=== PATIENT | female | born 1955 | race Hispanic/Latino ===

== ENCOUNTER 2024-08-29 05:51 | Observation (INO) | payer OTHER, MEDICAID ==
[2024-08-27 12:58] LABS: IMMATURE GRANULOCYTE ABSOLUTE 0.03 K/uL (0-1); NUCLEATED RED BLOOD CELLS 0.0 % (0.0-0.19); PLATELET COUNT (AUTO) 202 K/uL (130-400); RED BLOOD CELL COUNT(AUTO) 4.23 MIL/uL (4.00-5.50); RED CELL DISTRIBUTION WIDTH 13.6 % (11.0-15.5); WHITE BLOOD COUNT (AUTO) 7.2 K/uL (4.8-10.8)
[2024-08-27 12:59] VITALS: PULSE 63; RESP 18; TEMP 97.7
--- NOTE | 2024-08-27 13:30 | NUR ---
RE: IS INITIAL IS INITIAL INSTRUCTIONS DONE BY RT KRIS DURING PREOP.
--- NOTE | 2024-08-28 06:41 | EKG ---
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
--- NOTE | 2024-08-28 10:30 | NUR ---
RE: EKG REPORTED EKG RESULTS TO DR MACIEL, NO NEW ORDERS RECEIVED.
[2024-08-29] VITALS (31 sets, daily range): BP systolic 111–180; BP diastolic 44–74; PULSE 59–88; RESP 16–20; TEMP 97.5–98.5; O2SAT 96–99
[~2024-08-29] VITALS: Ht 157.5 cm; Wt 82.6 kg
[~2024-08-29 05:51] MED LIST: INSU100V37 SQ; LOSA25TA41 PO; METF-445 PO; ROSU5TAB51 PO; SEMA2PEN SQ
[2024-08-29] MEDS ORDERED: MIDAZOLAM HCL 1 MG/ML 2ML VIAL ONE (06:31)
[2024-08-29] MEDS ORDERED: TRANEXAMIC ACID 1000MG/10ML ONE (06:34)
[2024-08-29] MEDS: 0.9%NACL 1000ML 1,000 ML IV ONE (06:38)
--- NOTE | 2024-08-29 07:25 | DS ---
Discharge Summary Hospital Course Summary: The patient was admitted to the hospital postoperatively on 08/29/2024 after undergoing right total knee arthroplasty. They did well with routine postoperative pain control. They worked well with physical therapy. They developed some acute blood loss anemia but remained asymptomatic. The hospital course was otherwise uncomplicated. They were subsequently able to be discharged on postoperative day [] once discharge arrangements were made with [place]. 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 Dressing may be removed 09/03/2024 and left open to air. Showers ok allowing soap and water to run over the wound. Pat dry. Do not submerge wound in tub/pool. Do not apply ointments. Do not apply Betadine. Do not apply peroxide. Ice packs to decrease pain/swelling. Prescriptions have been sent to the pharmacy: *Eden 5/325mg 1-2 tab every 6 hours as needed for severe pain. (please call for refills) Cyclobenzaprine 5mg 1 tab every 8 hours as needed for muscle spasm pain. Gabapentin 100mg 1 tab every 8 hours (may discontinue if drowsy). Colace 100mg 1 tab orally twice a day as needed for constipation. Aspirin 325mg twice a day for 30 days to prevent blood clots. Follow up appointment scheduled on 09/21/2024 at 8:45 AM at [facility]. Home Medications: Active Scripts Hydrocodone/Acetaminophen (Hydrocodon-Acetaminophen 5-325) 5 Mg-325 Mg Tablet, 1-2 TAB PO Q6HPRN PRN for SEVERE PAIN (7-10), #56 TAB 0 Refills Prov:BALTAZAR TORRES MD 08/31/24 Reported Medications Semaglutide (Ozempic) 2 Mg/0.75 Ml (8 Mg/3 Ml) Pen.injctr, 2 MG SQ QWEEK 08/27/24 Insulin Degludec (Tresiba) 100 Unit/Ml Vial, 35 UNIT SQ NOON, VIAL 08/27/24 Rosuvastatin Calcium (Rosuvastatin Calcium) 5 Mg Tablet, 5 MG PO HS, TAB 08/27/24 Losartan Potassium (Losartan Potassium) 25 Mg Tablet, 25 MG PO BID, TAB 08/27/24 Metformin HCl (Metformin HCl) 850 Mg Tablet, 850 MG PO TIDMEALS, TAB 08/27/24 BALTAZAR TORRES MD Aug 29, 2024 07:25
[2024-08-29] MEDS ORDERED: PoTASSium chl 10% ELIXIR 20MEQ 20 MEQ/15 ML UDCUP PO PRN (07:30)
[2024-08-29] MEDS ORDERED: CALCIUM CARB 500MG PO PRN (07:30)
[2024-08-29] MEDS ORDERED: FERROUS FUMARATE 324 MG TABLET PO PRN (07:30)
[2024-08-29] MEDS ORDERED: HYDROcodone/APAP 5/325 1 TAB TABLET PO PRN (07:30)
[2024-08-29] MEDS: TRANEXAMIC ACID 1000MG/10ML IV ONE (08:49)
[2024-08-29] MEDS ORDERED: GLYCOPYRROLATE 0.2 MG/ML 5 ML VIAL ONE (08:54)
[2024-08-29] MEDS ORDERED: NEOSTIGMINE METHYLSULFATE 1MG/ML IV ONE (08:54)
[2024-08-29] MEDS: (Semaglutide (Ozempic) 2 MG) SQ SCH (09:00)
--- NOTE | 2024-08-29 10:30 | NUR ---
RECEIVED PATIENT FROM RECOVERY ROOM VIA BED,AWAKE ALERT AND ORIENTED, ORIENTED TO ROOM AND USE OF CALL AUGUSTE.CHARANJIT WRAP TO RT LOWER EXTREMITY INTACT PATIENT ABLE TO WIGGLE TOES ,PINK IN COLOR STRONG PEDAL PULSES NOTED. SEQUENTIAL COMPRESSION DEVICES APPLIED TO BILATERAL LOWER EXTREMITIES ,ICE PACKS APPLIED TO RT KNEE.RATIONAL FOR USE EXPLAINED TO PATIENT.PAIN SCALE ON PATIENT BOARD REVIEWED WITH PATIENT ,PATIENT STATES SHE CURRENTLY DOES NOT REQUIRE PAIN MED.INFORMED PATIENT ON THE USE OF INCENTIVE SPIROMETRY STATES I HAVE BEEN EDUCATED PREVIOUSLY ON THE USE , MY DAUGHTER HAS THE ONE I WAS GIVEN AND WILL BE HERE SHORTLY WITH IT. CALL AUGUSTE WITHIN REACH VITAL SIGNS STABLE .
--- NOTE | 2024-08-29 10:38 | HMCIMG ---
EXAM: CR right Knee, 2 View. CLINICAL HISTORY: S/P RT TKA SURGERY COMPARISON: None provided. FINDINGS: Cemented right total knee arthroplasty is in near anatomic alignment with no periprosthetic fracture appreciated. Appropriate postsurgical changes are noted within the soft tissues and knee joint. IMPRESSION: 1. Right total knee arthroplasty in near anatomic alignment without periprosthetic fracture. /Clever
--- NOTE | 2024-08-29 10:56 | OP ---
Operative Note: DATE OF PROCEDURE: 08/29/24 PREOPERATIVE DIAGNOSIS: Right knee osteoarthritis. POSTOPERATIVE DIAGNOSIS: Right knee osteoarthritis. PROCEDURE PERFORMED: Right knee total knee arthroplasty. SURGEON: Harmony Barrios MD DIE TRIPPER: Shanique Hoyt and Yamilet Freire. ANESTHESIA: General with adductor canal block. ANESTHESIA: HEAVY MOBILE EQUIPMENT REPAIRER Yaw Walker. ESTIMATED BLOOD LOSS: 50cc. COMPLICATIONS: None. DRAINS: None. SPECIMENS REMOVED: resected bone. Not sent to pathology. IMPLANTS: [employer]hew Journey II BCS size 4 Oxinium femur, size 2 tibial base plate, 29 x 7.5 mm patella, 10 mm polyethylene STATEMENT OF MEDICAL NECESSITY: The patient is a 69-year-old female who suffers from right knee osteoarthritis failing conservative management. After discussion of the risks, benefits, and alternatives with the patient, they voluntarily agreed to undergo the aforementioned procedure. DESCRIPTION OF PROCEDURE: Patient was properly identified in the preoperative holding area. Surgical site marking was verified and surgery consent reviewed. The patient was then taken to the operating room and placed in supine position on the OR table. After induction of general anesthesia, preoperative antibiotics were given, all bony prominences were well-padded, and a well padded tourniquet was applied but not inflated at this time. The right lower extremity was then prepped and draped in usual sterile fashion. Surgical time out was done verifying correct surgery, side, site, and location to be performed. We then began the procedure by exsanguinating the limb using an Esmarch and inflating the tourniquet to 350 mmHg. At this point, we made an anterior midline incision using a 10 blade, coming down sharply the level of the fascia. Skin flaps were elevated medially and laterally. We then obtained a clean 10 blade and performed a standard medial parapatellar arthrotomy. We excised the infrapatellar fat pad. We performed our soft tissue releases off of the tibia. We transected the ACL and removed the anterior portion of the medial & lateral meniscus. We then brought the knee into hyperflexion with the patella everted. We used our entry reamer to enter the femoral canal. We then placed our intramedullary cutting guide for our distal femoral cutting block. We then performed our distal femoral osteotomy ensuring appropriate rotation and removed the bony wafer. We then removed these pins and block and then used jig 2 to size the distal femur with the after mentioned size found. We then placed our 5-in-1 cutting block in 4 degrees of external rotation and took our 5 cuts ensuring to protect the patellar tendon and the collateral ligaments. We then removed the cutting block and our bony fragments using a curved osteotome. We then placed our PCL retractor subluxating the tibia anteriorly. Using an extra medullary tibial cutting guide, we hung the block for our proximal tibial cut taking 2 mm off the more diseased portion. Prior to pinning this block in place, we ensured appropriate varus/valgus alignment and posterior slope similar to the qawalangin slope of the patient's knee. We then performed our proximal tibial osteotomy and removed the bony wafer using Bovie electrocautery to release any remaining soft tissue attachments. We then used our tibial sizing paddle and checked once more for varus & valgus alignment and found this to be appropriate. At this point, we pinned our tibial paddle in place. We then removed the PCL retractor and subluxated the tibia posteriorly while we placed our femoral trial component. We then finished preparing the notch with the reamer and box chisel. The notch portion of the trial femoral component was then placed. A posterior stabilized polyethylene, size 9 trial was placed. This was immediately increased to a size 10 polyethylene secondary to laxity with varus and valgus stressing. The knee was then taken through range of motion and found to have stable full range of motion. We then placed a bump under the ankle and everted the patella to perform our freehand cut of the undersurface the patella. We then sized our patella and reamed to the lug holes for this. We placed our trial patellar component and begin to take the knee through range of motion. The patella had appropriate tracking. At this point we began removing our trial components and punched the tibial keel prior to removing our tibial trial component. Final components were opened and cement was mixed on the back table while we injected local cocktail in the posterior capsule. We then thoroughly irrigated out the bone and dried the bony surfaces. We cemented our tibial component in place ensuring to remove excess cement and placed our trial polyethylene. We then cemented our femoral component in place once again taking time to ensure excess cement was removed leg was brought into full extension to help squeeze the excess cement from around the femoral component. We then brought the knee back in a flexion to remove this portion of the cement at this point we placed the ankle in a bump thoroughly irrigated off the patellar component and cemented our patellar component in standard fashion again removing excess cement. While we waited for the cement to cure, we thoroughly irrigated out the wound with normal saline. Once our cement had cured, we took the knee through a range of motion and found full and stable range of motion. We then elected to use the size 10 polyethylene and removed our trial polyethylene. We impacted our final polyethylene component in place in standard fashion and took the knee through a range of motion check once more. This was satisfactory so we began to repair the arthrotomy using #1 Vicryl in interrupted [id number]-lp-[id number] fashion. Subcutaneous tissue was repaired using 2-0 Vicryl. Running subcuticular 3-0 Monocryl stitch with Dermabond placed over this for the skin. We then applied a foam barrier dressing and a pressure dressing consisting of 4 x 4's fluffs and an Markie wrap. The tourniquet was then deflated. Patient was awakened from anesthesia, and they were taken to the recovery room in stable condition. HARMONY BARRIOS MD Aug 29, 2024 10:56
[2024-08-29] MEDS: 0.9%NACL 1000ML 1,000 ML IV SCH (12:18)
--- NOTE | 2024-08-29 14:46 | NUR ---
DC PLAN VISITED WITH PATIENT. PATIENT LIVES WITH AUNT. PATIENT HAS PROVIDER 2 HRS. WALKER AND WHEEL CHAIR AT HOME. ASKED PATIENT ABOUT TRIGGER FOR [facility]. SAID DR BRADY MENTIONED A SNF BUT COULD NOT REMEMBER. SAID THAT HE PROBABLY MEANT [facility]. BUT THAT DR. TORRES PREFERS [facility]. BUT THAT DR. BRADY HAS PRIVILEGES TO [facility]. JHONNY SIGNED FOR [facility]. LET REP KNOW. PENDING PT NOT TO SEND PACKET. Addendum: 08/29/24 at 1451 by LANCE KIDD RN CM Amended: Links added.
--- NOTE | 2024-08-29 16:00 | NUR ---
Ortho Coordinator: Teaching regarding DVT prevention and pneumonia, pain expectations and pain management. Patient in bed, daughter at bedside. B SCD sleeves in place and functioning. Incentive spirometer on bedside table. Patient return demonstrated proper use of incentive spirometer and verbalized frequency of use. Patient return demonstrated proper foot flexion/extension exercises, rationale provided. Pain management strategy reviewed. Questions answered. Expectations set for patient to shower tomorrow, rationale provided. Patient intends to discharge to rehab. No additional questions or concerns at this time.
[2024-08-29] MEDS: HYDROcodone/APAP 5/325 1 TAB TABLET PO PRN (17:13)
[2024-08-30] VITALS (7 sets, daily range): BP systolic 156–171; BP diastolic 46–63; PULSE 58–73; RESP 18–20; TEMP 97.3–98.4; O2SAT 96–98
[2024-08-30 05:36] LABS: NUCLEATED RED BLOOD CELLS 0.0 % (0.0-0.19); PLATELET COUNT (AUTO) 152.0 K/uL (130-400); RED BLOOD CELL COUNT(AUTO) 3.56 MIL/uL (4.00-5.50); RED CELL DISTRIBUTION WIDTH 13.5 % (11.0-15.5); WHITE BLOOD COUNT (AUTO) 7.5 K/uL (4.8-10.8)
[2024-08-30 06:00] LABS: CREATININE 1.0 mg/dL (0.5-1.0); GLOMERULAR FILTR. RATE CALC 60.0 mL/min (>90); GLUCOSE,RANDOM 120.0 mg/dL (70-105); SODIUM SERUM 140.0 mmol/L (136-145); UREA NITROGEN, BLOOD 12.0 mg/dL (7-18)
--- NOTE | 2024-08-30 08:10 | PN ---
Ortho postop day one. This morning patient is awake alert and oriented. She is reporting well managed pain. Daughter is at the bedside and states she has been doing fairly well. Vital signs have remained stable. Voiding on his own without difficulty. Passing Cindy;pending BM. Laboratory results reviewed noted to have a drop in hemoglobin and hematocrit as expected after TKA. Patient we will continue to be monitored and we will address per protocol as necessary. The Markie bandage his already been removed. The dressing is intact anteriorly. Bilateral SCD sleeves are currently on to lower extremities. The gastrocnemius a soft and nontender. Negative Homans. Operative findings discussed with the patient. Ambulated yesterday with physical therapy about 20 ft and is pending therapy this morning. Anticipated discharge goal is SNF at [facility]. Assessment: Status post right total knee arthroplasty. Acute postoperative blood loss anemia. Plan: Continue with Dr. Barrios's TKA protocol and discharge planning. Acute postoperative blood loss anemia addressed with the protocol as necessary. Vitals/Labs Vital Signs Date Time Temp Pulse Resp B/P (MAP) Pulse Ox O2 Delivery O2 Flow Rate FiO2 08/30/24 07:15 73 18 N/Cannula Low lpm 2.0 28 08/30/24 04:00 98.4 161/59 96 Laboratory Tests 08/30/24 05:21 Medications Current Medications Cefazolin Sodium 2 gm STK-MED ONCE .ROUTE; Start 08/29/24 at 06:19; Stop 08/29/24 at 06:19; Status DC Sodium Chloride 1,000 ml @ As Directed STK-MED ONCE IV Last administered on 08/29/24at 06:38; Start 08/29/24 at 06:19; Stop 08/29/24 at 06:19; Status DC Propofol 200 mg STK-MED ONCE IV; Start 08/29/24 at 06:31; Stop 08/29/24 at 06:31; Status DC Midazolam HCl 2 mg STK-MED ONCE .ROUTE; Start 08/29/24 at 06:31; Stop 08/29/24 at 06:31; Status DC Rocuronium [place] 50 mg STK-MED ONCE .ROUTE; Start 08/29/24 at 06:31; Stop 08/29/24 at 06:31; Status DC Fentanyl Citrate 100 mcg STK-MED ONCE .ROUTE; Start 08/29/24 at 06:31; Stop 08/29/24 at 06:32; Status DC Ketorolac Tromethamine 30 mg STK-MED ONCE .ROUTE; Start 08/29/24 at 06:34; Stop 08/29/24 at 06:34; Status DC Ropivacaine 150 mg STK-MED ONCE .ROUTE; Start 08/29/24 at 06:34; Stop 08/29/24 at 06:34; Status DC Tranexamic Acid 1,000 mg STK-MED ONCE .ROUTE; Start 08/29/24 at 06:34; Stop 08/29/24 at 06:34; Status DC Fentanyl Citrate 100 mcg STK-MED ONCE .ROUTE; Start 08/29/24 at 06:40; Stop 08/29/24 at 06:40; Status DC Ropivacaine 150 mg STK-MED ONCE .ROUTE; Start 08/29/24 at 06:42; Stop 08/29/24 at 06:42; Status DC Ketamine HCl 50 mg STK-MED ONCE .ROUTE; Start 08/29/24 at 06:48; Stop 08/29/24 at 06:48; Status DC Acetaminophen 100 ml @ As Directed STK-MED ONCE .ROUTE; Start 08/29/24 at 06:58; Stop 08/29/24 at 06:58; Status DC Sodium Chloride 1,000 ml @ 100 mls/hr Q10H IV Last administered on 08/29/24at 12:18; Start 08/29/24 at 07:30; Stop 08/30/24 at 07:29; Status DC Polyethylene Glycol 17 gm DAILY PO Last administered on 08/29/24at 12:12; Start 08/29/24 at 09:00; Stop 09/28/24 at 08:59 Bisacodyl 10 mg DAILY PRN RC; Start 09/01/24 at 07:30; Stop 10/01/24 at 07:29 Ketorolac Tromethamine 15 mg Q6H PRN IV Last administered on 08/30/24at 03:30; Start 08/30/24 at 07:30; Stop 09/04/24 at 07:29 Ferrous Fumarate 324 mg DAILY PRN PO; Start 08/29/24 at 07:30; Stop 09/28/24 at 07:29 Ondansetron HCl 4 mg Q6H PRN IVP; Start 08/29/24 at 07:30; Stop 09/28/24 at 07:29 Calcium Carbonate 500 mg Q12H PRN PO; Start 08/29/24 at 07:30; Stop 09/28/24 at 07:29 Insulin Human Regular INSULIN SLIDING SCAL... ACHS SQ; Start 08/29/24 at 07:30; Stop 09/28/24 at 07:29 Cefazolin Sodium 2 gm Q8H IVP; Start 08/29/24 at 12:30; Stop 08/29/24 at 12:20; Status DC Cyclobenzaprine HCl 5 mg Q8H PRN PO; Start 08/29/24 at 07:30; Stop 09/28/24 at 07:29 Gabapentin 100 mg TID PO Last administered on 08/29/24at 20:21; Start 08/29/24 at 09:00; Stop 09/28/24 at 08:59 Aspirin 325 mg DAILY PO; Start 08/30/24 at 09:00; Stop 09/29/24 at 08:59 Ketorolac Tromethamine 15 mg Q8H IV Last administered on 08/29/24at 22:37; Start 08/29/24 at 07:30; Stop 08/29/24 at 23:31; Status DC Docusate Sodium 100 mg BID PO Last administered on 08/29/24at 20:21; Start 08/29/24 at 09:00; Stop 09/28/24 at 08:59 Potassium Chloride 100 ml @ 100 mls/hr AD PRN IV; Start 08/29/24 at 07:30; Stop 09/28/24 at 07:29 Potassium Chloride 20 meq AD PRN PO; Start 08/29/24 at 07:30; Stop 09/28/24 at 07:29 Potassium Chloride 20 meq AD PRN PO; Start 08/29/24 at 07:30; Stop 09/28/24 at 07:29 Tramadol HCl 50 mg Q6H PRN PO; Start 08/29/24 at 07:30; Stop 09/03/24 at 07:29 Acetaminophen/ Hydrocodone Bitart Q4H PRN PO; Start 08/29/24 at 07:30; Stop 08/29/24 at 07:30; Status DC Losartan Potassium 25 mg BID PO Last administered on 08/29/24at 20:21; Start 08/29/24 at 09:00; Stop 09/28/24 at 08:59 Metformin HCl 850 mg TIDMEALS PO; Start 08/29/24 at 08:00; Stop 09/28/24 at 07:59 Insulin Glargine 35 units NOON SQ; Start 08/29/24 at 12:00; Stop 09/28/24 at 11:59 Atorvastatin Calcium 10 mg HS PO Last administered on 08/29/24at 20:21; Start 08/29/24 at 21:00; Stop 09/28/24 at 20:59 Home Med (Semaglutide (Ozempic) 2 MG) QWEEK SQ; Start 08/29/24 at 09:00; Stop 09/28/24 at 08:59 Phenylephrine HCl 10 mg STK-MED ONCE IV; Start 08/29/24 at 07:36; Stop 08/29/24 at 07:36; Status DC Acetaminophen/ Hydrocodone Bitart 1 tab Q4H PRN PO; Start 08/29/24 at 08:00; Stop 09/03/24 at 07:59 Acetaminophen/ Hydrocodone Bitart 2 tab Q4H PRN PO Last administered on 08/30/24at 07:10; Start 08/29/24 at 08:00; Stop 09/03/24 at 07:59 Hydralazine HCl 20 mg STK-MED ONCE .ROUTE; Start 08/29/24 at 07:52; Stop 08/29/24 at 07:52; Status DC Cefazolin Sodium 2 gm STK-MED ONCE IVPB Last administered on 08/29/24at 07:29; Start 08/29/24 at 07:29; Stop 08/29/24 at 08:05; Status DC Tranexamic Acid 1,000 mg STK-MED ONCE IV Last administered on 08/29/24at 07:32; Start 08/29/24 at 07:32; Stop 08/29/24 at 08:05; Status DC Ketorolac Tromethamine 30 mg STK-MED ONCE IVP Last administered on 08/29/24at 08:00; Start 08/29/24 at 08:00; Stop 08/29/24 at 08:05; Status DC Ropivacaine 150 mg STK-MED ONCE IJ Last administered on 08/29/24at 08:00; Start 08/29/24 at 08:00; Stop 08/29/24 at 08:05; Status DC Tranexamic Acid 1,000 mg STK-MED ONCE IV Last administered on 08/29/24at 08:49; Start 08/29/24 at 08:49; Stop 08/29/24 at 08:50; Status DC Glycopyrrolate 1 mg STK-MED ONCE .ROUTE; Start 08/29/24 at 08:54; Stop 08/29/24 at 08:54; Status DC Neostigmine Methylsulfate 10 mg STK-MED ONCE IV; Start 08/29/24 at 08:54; Stop 08/29/24 at 08:54; Status DC Fentanyl Citrate 100 mcg STK-MED ONCE .ROUTE; Start 08/29/24 at 09:16; Stop 08/29/24 at 09:16; Status DC Ketorolac Tromethamine 15 mg STK-MED ONCE .ROUTE; Start 08/29/24 at 09:45; Stop 08/29/24 at 09:45; Status DC Cefazolin Sodium 2 gm Q8H IVP Last administered on 08/29/24at 22:34; Start 08/29/24 at 15:30; Stop 08/29/24 at 23:31; Status DC Ketorolac Tromethamine 15 mg STK-MED ONCE .ROUTE; Start 08/30/24 at 03:28; Stop 08/30/24 at 03:34; Status DC JAKE NOE NP Aug 30, 2024 08:10
--- NOTE | 2024-08-30 08:25 | NUR ---
GABBY PLAN REFERRAL SENT TO [facility]. PASRR SENT CAN GO VIA [facility]. Addendum: 08/30/24 at 0826 by LANCE KIDD RN CM Amended: Links added.
[2024-08-30] MEDS: ASPIRIN 325MG EC TAB PO SCH (08:54)
--- NOTE | 2024-08-30 15:00 | NUR ---
GABBY PLAN PATIENT ACCEPTED TO [facility]. LET NURSE AND KNOW. CAN GO [facility] Addendum: 08/30/24 at 1501 by LANCE KIDD RN CM Amended: Links added.
--- NOTE | 2024-08-30 15:30 | NUR ---
Ortho Coordinator: Reinforced teaching. Patient in bed, dressed in street clothes. Daughter at bedside. Patient grimacing. Pain 09/23. Reviewed pain management strategy. Patient did not self assess for pain every four hours. Patient encouraged to continue incentive spirometer, to premedicated prior to physical therapy and periods of high activity, to perform foot flexion and extension exercises. Rationale for all provided. Patient and daughter verbalized understanding. No additional questions/concerns at this time.
[2024-08-30] MEDS: HYDROcodone/APAP 5/325 1 TAB TABLET PO PRN (15:32)
[2024-08-30] MEDS: CYCLOBENZAPRINE HCL 10 MG TABLET PO PRN (17:49)
[2024-08-31] VITALS: BP 171/46; PULSE 74; RESP 20; TEMP 98.7
[2024-08-31 04:00] VITALS: BP 151/34; PULSE 77; RESP 20; TEMP 98.5
[2024-08-31] MEDS ORDERED: ASPI-891 PO (07:52)
[2024-08-31] MEDS ORDERED: CYCL-309 PO (07:52)
[2024-08-31] MEDS ORDERED: HYDR-4060 PO (07:52)
[2024-08-31] MEDS ORDERED: GABA100C PO (07:52)
[2024-08-31] MEDS ORDERED: DOCU-116 PO (07:52)
[2024-08-31 08:00] VITALS: BP 121/66; PULSE 75; RESP 16; TEMP 97.8
[2024-08-31] MEDS: PoTASSium chloRIDE 20MEQ ER 20 MEQ ERTAB PO PRN (09:05)
[2024-08-31 09:34] VITALS: O2SAT 97
[2024-08-31 12:00] VITALS: BP 168/66; PULSE 74; RESP 17; TEMP 97.8
--- NOTE | 2024-08-31 16:05 | NUR ---
PATIENT REPORT PATIENT GOING TO [facility]. REPORT CALLED TO CARLOS EDUARDO [facility]. ALL QUESTIONS ANSWERED. MED REQ FAXED. PER CARLOS EDUARDO SEND PATIENT WITH IV ACCESS.
--- NOTE | 2024-08-31 16:22 | PN ---
SUBJECTIVE: The patient is status post right total knee arthroplasty, tolerating physical therapy. OBJECTIVE: GENERAL: She is awake, alert, and oriented in person and place. Not in distress. Sitting in a chair, comfortable. VITAL SIGNS: In the chart. HEENT: Normocephalic, atraumatic. LUNGS: Clear to auscultation. HEART: S1, S2 are distant. EXTREMITIES: No clubbing or cyanosis. No edema. LABORATORY DATA: Hemoglobin 10.8, platelets 152, glucose in the a.m. was 120. ASSESSMENT AND PLAN: * Status post right total knee arthroplasty. Continue with Orthopedics recommendation. DVT prophylaxis, GI prophylaxis, pulmonary prophylaxis. * Anemia, mild, postoperative. Continue to monitor. * Type 2 diabetes. Continue current treatment. Continue diet. * Hypertension. Continue current medications. * Dyslipidemia. Continue current therapy. * Plan to discharge when cleared by Orthopedics. Follow up in my office after discharge from SNF. DOS: 08/31/2024 TID: [id number] RECEIPT: [id number] MTDD
--- NOTE | 2024-08-31 16:35 | NUR ---
PATIENT DISCHARGE PATIENT DISCHARGED. PERIPHERAL IV TO LEFT FOREARM INTACT. IV NOT DISCONTINUED PER FACILITY REQUEST. DISCHARGE INSTRUCTIONS GIVEN. PRESCRIPTIONS SENT TO FACILITY. PATIENT AWARE TO F/U WITH ON 09/21 ALL QUESTIONS ANSWERED. DRESSING CLEAN DRY AND INTACT. REPORTS PAIN 2/10. EDUCATION PROVIDED. FACILITY TRANSPORTER ON UNIT TO TRANSPORT PATIENT.
== END 2024-08-31 16:40 ==
LOC: DAH 05:51 → DAHIP 05:52 → 4CH 10:30 → EDSTATUS 11:00
PROVIDERS: ADMIT Student in an Organized Health Care Education/Training Program; ATTEND Student in an Organized Health Care Education/Training Program
DX: M17.11 Unilateral primary osteoarthritis, right knee (principal); G89.18 Other acute postprocedural pain; D62 Acute posthemorrhagic anemia; E11.9 Type 2 diabetes mellitus without complications; E78.5 Hyperlipidemia, unspecified; I10 Essential (primary) hypertension; Z98.890 Other specified postprocedural states; Z79.899 Other long term (current) drug therapy
CPT/HCPCS: 85025; 84134; 86140; 36415 ×2; 93005; 87641; 96376; 96365; 96366; 96375; 64447; 27447; 82948 ×10; 73560; 97161; 97116 ×4; 97530 ×7; 80048; 85027; G0378 ×57; A4223 ×2; A4663; J3010 ×3; J3490 ×5; J7030; J0360; J2250; J2704; J1885 ×8; J2710; J2795 ×3; J2371; J0690 ×4; C1713 ×2; C1776 ×2; A4649 ×2; A4930; A6255; A5120; A4215; A4222; A4221; A4216; 81003